=== PATIENT | female | born 1980 | race Two or more races ===

== ENCOUNTER 2022-05-15 18:40 | Emergency (ER) | payer OTHER ==
[~2022-05-15 18:40] MED LIST: PAXIL
[2022-05-15 19:07] VITALS: BP 105/73
== END 2022-05-15 21:21 | disposition left against medical advice (07) ==
LOC: ER 18:40
DX: U07.1 COVID-19 (principal); Z53.29 Procedure and treatment not carried out because of patient's decision for other reasons
CPT/HCPCS: 36415